=== PATIENT | female | born 1995 | race Caucasian/White ===

== ENCOUNTER 2017-11-26 09:49 | Emergency (ER) | payer OTHER ==
[~2017-11-26] VITALS: Ht 162.6 cm; Wt 89.8 kg
[2017-11-26 10:08] VITALS: BP 147/86; Ht 162.6 cm; Wt 89.8 kg
== END 2017-11-26 11:35 | disposition home or self-care (01) ==
LOC: ED 09:49
DX: S61.212A Laceration without foreign body of right middle finger without damage to nail, initial encounter (principal); W25.XXXA Contact with sharp glass, initial encounter; Y93.G9 Activity, other involving cooking and grilling; Y99.8 Other external cause status; Y92.89 Other specified places as the place of occurrence of the external cause
CPT/HCPCS: 90715; Q0092

== ENCOUNTER 2020-02-19 22:34 | Emergency (ER) | payer OTHER ==
[~2020-02-19] VITALS: Ht 165.1 cm; Wt 96.2 kg
[2020-02-19 22:44] VITALS: Ht 165.1 cm; Wt 96.2 kg
[2020-02-20 01:19] VITALS: BP 137/89
== END 2020-02-20 01:19 | disposition home or self-care (01) ==
LOC: ED 22:34
DX: S62.396A Other fracture of fifth metacarpal bone, right hand, initial encounter for closed fracture (principal); W22.8XXA Striking against or struck by other objects, initial encounter; Y93.89 Activity, other specified; Y92.89 Other specified places as the place of occurrence of the external cause; Y99.8 Other external cause status
CPT/HCPCS: Q0092